=== PATIENT | female | born 1960 | race Caucasian/White ===

== ENCOUNTER 2021-07-14 11:51 | Emergency (ER) | payer SELFPAY ==
--- NOTE | ~2021-07-14 | XR_ITS ---
XR chest 2V DATE: 07/14/2021 12:23 INDICATION: Crackles, cough, fatigue. Dizziness. TECHNIQUE: 2 views COMPARISON: None FINDINGS: Normal heart size. No hilar or mediastinal enlargement. No pulmonary infiltrate or consolid ation, pleural effusion or pulmonary vascular congestion or pneumothorax. Diffuse osteopenia. Mild dextroscoliosis of the upper thoracic spine. IMPRESSION: No active cardiopulmonary disease Reviewed, dictated and finalized at location A.
--- NOTE | 2021-07-14 11:55 | ED.GENADULT ---
HPI - General Adult General Chief complaint: Upper Respiratory Infection Stated complaint: Vomiting Time Seen by Provider: 07/14/21 11:55 Source: patient and RN notes reviewed History of Present Illness HPI narrative: Patient is 60-year-old female who presents the urgent care with complaints of body aches, fatigue, chills and sweats and slight cough. 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 Patient states that since Thursday she has had some intermittent nasal congestion, chills, sweats, fatigue and body aches. Patient has not taken anything [id number] for her symptoms. Patient appears fatigued however no acute distress noted. Patient aware of the plan of care. Some parts of this dictation were generated by voice recognition software and may contain typographical and/or grammatical inaccuracies. Related Data Home Medications Medication Instructions Recorded Confirmed [id number] K 1 tablet PO DAILY 07/14/21 07/14/21 [Adults Multivitamin] Allergies Allergy/AdvReac Type Severity Reaction Status Date / Time aspirin AdvReac Unknown Nausea and Verified 07/14/21 12:17 Vomiting propoxyphene AdvReac Unknown nausea Verified 07/14/21 12:17 Review of Systems Review of Systems: CONSTITUTIONAL: Reports of chills and sweats and fatigue EYES: Denies visual changes, redness, or discharge. ENT: Denies rhinorrhea, congestion, sore throat, or otalgia. CARDIOVASCULAR: Denies chest pain, palpitations, or edema. RESPIRATORY: Denies cough or dyspnea. GASTROINTESTINAL: Denies abdominal pain, nausea, vomiting, or diarrhea. GENITOURINARY: Denies dysuria or hematuria. SKIN: Denies rash or itching. MUSCULOSKELETAL: Denies back pain, joint pain. Reports of body aches NEUROLOGIC: Denies headache, numbness, or weakness. All other systems reviewed are negative, except as documented in HPI. PMFSH Comments At the time of my signature, I reviewed and agree with the nursing past medical, surgical, social, and family history. There is no relevant family history pertinent to the patient complaint. Exam Narrative: GENERAL: This is a well-nourished, well-developed patient. Appears very fatigued HEAD: normocephalic, atraumatic. EYES: PERRL. Sclera clear/white. Vision is grossly intact. EARS: External ears normal, auditory canals clear and without drainage, TMs normal without perforation. Hearing grossly intact. NOSE: External nose normal with no obvious nasal discharge, nares without redness, no rhinorrhea. THROAT: Mucous membranes slightly dry, posterior pharynx clear. NECK: Neck supple, non-tender without lymphadenopathy, masses or thyromegaly. CARDIOVASCULAR: Regular rate and rhythm without murmurs, gallops, or rubs. RESPIRATORY: Clear to auscultation. Decreased bibasilar, more so to the right lower GASTROINTESTINAL: Abdomen soft, non-tender, nondistended. SKIN: warm, intact with no suspicious lesions or rash, good texture and turgor. NEURO: awake, alert, and oriented to person, place and time. There were no obvious focal neurologic abnormalities. EXTREMITIES: No clubbing, cyanosis, or edema. Course Course Level of Care: Express Care Visit Vital Signs Vital signs: Vital Signs Temperature 98.1 F 07/14/21 12:09 Pulse Rate 90 07/14/21 12:09 Respiratory Rate 20 07/14/21 12:09 Blood Pressure 123/62 07/14/21 12:09 Pulse Oximetry 99 07/14/21 12:09 Temperature 98.1 F 07/14/21 12:09 Pulse Rate 90 07/14/21 12:09 Respiratory Rate 20 07/14/21 12:09 Blood Pressure 123/62 07/14/21 12:09 Pulse Oximetry 99 07/14/21 12:09 Reviewed Medical Decision Making MDM Narrative Medical decision making narrative: Reviewed lab results with the patient. She is aware that flu was negative however you are positive for COVID. You would be considered out of quarantine considering her symptoms started last Thursday.
[2021-07-14 12:09] VITALS: BP 123/62; PULSE 90; RESP 20; TEMP 36.7; O2SAT 99
== END 2021-07-14 12:40 | disposition home or self-care (01) ==
PROVIDERS: Emergency Provider Nurse Practitioner Family
DX: U07.1 COVID-19 (principal)
CPT/HCPCS: 71046; 87426; 87804; 99203; C9803; G0463